=== PATIENT | male | born 1935 | race African-American/Black ===

== ENCOUNTER 2016-11-03 17:19 | Inpatient (IN) | payer MEDICARE, OTHER ==
[~2016-11-03] VITALS: Ht 167.6 cm; Wt 67.1 kg
[2016-11-03] MEDS ORDERED: SODIUM CHLORIDE 0.9% 1000ML BAG (SEPSIS BOLUS) IV ONE (19:15)
[2016-11-03] MEDS ORDERED: LEVOFLOXACIN 750MG PREMIX 150 ML IV ONE (19:15)
[2016-11-03 19:29] LABS: BASOPHILS % 0.8 % (0.0-2.0); EOSINOPHILS % 1.3 % (0.0-5.0); HEMATOCRIT. 35.8 % (42.0-52.0); HEMOGLOBIN. 12.1 g/dL (14.0-18.0); LYMPHOCYTES % 27.4 % (20.0-50.0); MEAN CORPUSCULAR HEMOGLOBIN 30.4 pg (28.0-32.0); MEAN CORPUSCULAR HGB CONC 33.6 g/dL (31.0-37.0); MEAN CORPUSCULAR VOLUME 90.3 fL (80.0-94.0); MONOCYTES % 8.5 % (2.0-8.0); PLATELET 210 x1000/uL (130-400); RED BLOOD CELL COUNT 3.97 mill/uL (4.7-6.1); RED CELL DISTRIBUTION WIDTH 15.5 % (11.6-14.6); WHITE BLOOD COUNT 5.3 x1000/uL (4.5-11.0)
[2016-11-03 19:35] LABS: INR 1.2; PROTHROMBIN TIME 12.5 sec
[2016-11-03 19:36] LABS: CHLORIDE 105 mEq/L (98-107); INDEX HEMOLYSI 1 (1-3); INDEX ICTERIC 1 (1-4); INDEX LIPEMIC 1 (1-3)
[2016-11-03 19:37] LABS: ALBUMIN 2.7 g/dL (3.4-5.0); ANION GAP 14; CALCIUM 9.1 mg/dL (8.5-10.1); CARBON DIOXIDE 26 mEq/L (21-32); UREA NITROGEN BLOOD 18 mg/dL (7-21)
[2016-11-03 19:44] LABS: ALANINE AMINOTRANSFERASE 6 IU/L (13-61); eGFR 39 mL/min (>60)
[2016-11-03 19:45] LABS: NT PRO B-TYPE NATRIURETIC PEP 495 pg/mL (5-125); TROPONIN I < 0.02 ng/mL (0.00-0.04)
[2016-11-03 21:10] LABS: GLUCOSE URINE NEGATIVE (NEGATIVE); KETONES URINE 1+ (NEGATIVE); LEUKOCYTE ESTERASE URINE 2+ (NEGATIVE); NITRITE URINE POSITIVE (NEGATIVE); OCCULT BLOOD URINE 3+ (NEGATIVE); PH URINE 5.5 (4.5-8.0); PROTEIN URINE 2+ (NEGATIVE); SPECIFIC GRAVITY URINE 1.019 (1.005-1.030)
[2016-11-03 21:13] LABS: CLARITY URINE CLOUDY (CLEAR); COLOR URINE RED (YELLOW)
[2016-11-03 21:40] LABS: BACTERIA URINE 4+; RBC URINE TNTC /hpf (0-2); SQUAMOUS EPITHELIAL CELL URINE FEW /lpf (RARE/1+)
[2016-11-03] MEDS ORDERED: IPRATROPIUM/ALBUTEROL 0.5-3(2.5)MG/3ML NEB INH PRN (21:45)
[2016-11-03] MEDS ORDERED: MAGNESIUM/ALUMINUM HYDROXIDE/SIMETHICONE 30ML UDC PO PRN (21:45)
[2016-11-03] MEDS ORDERED: DOCUSATE SODIUM 100MG CAPSULE PO PRN (21:45)
[2016-11-03] MEDS ORDERED: GUAIFENESIN 200MG/10ML SUGAR FREE UDC PO PRN (21:45)
[2016-11-03] MEDS ORDERED: NITROGLYCERIN 0.4MG TABLET SL SL PRN (21:45)
[2016-11-03] MEDS ORDERED: DIPHENHYDRAMINE 50MG/ML VIAL IV PRN (21:45)
[2016-11-03] MEDS ORDERED: MORPHINE SULFATE 2 MG/ML CPJ (NOT FOR IM USE) IV PRN (21:45)
[2016-11-03] MEDS ORDERED: NA PHOS,M-B/NA PHOS,DI-BA ENEMA 118ML PR PRN (21:45)
[2016-11-03] MEDS ORDERED: ZOLPIDEM TARTRATE 5MG TABLET PO PRN (21:45)
[2016-11-03] MEDS ORDERED: CLONIDINE 0.1MG TABLET PO PRN (21:45)
[2016-11-03] MEDS ORDERED: ONDANSETRON HCL 4MG/2ML VIAL IV PRN (21:45)
[2016-11-03] MEDS ORDERED: TRAMADOL 50MG TABLET PO PRN (21:45)
[2016-11-03 22:44] LABS: CREATINE KINASE 58 IU/L (39-308); CREATINE KINASE MB FRACTION < 0.5 ng/mL (0.5-3.6); INDEX HEMOLYSI 1 (1-3); TROPONIN I < 0.02 ng/mL (0.00-0.04)
[2016-11-03] MEDS ORDERED: POTASSIUM CHLORIDE 20MEQ TABLET SR PO NR (22:45)
[2016-11-04 04:00] VITALS: BP_SYST 137; BP_DIAS 80; BP_DIAS 81
[2016-11-04] MEDS ORDERED: ACET1TAB14 PO (04:48)
[2016-11-04 08:00] VITALS: BP 136/102
[2016-11-04] MEDS: ZINC SULFATE 220 MG ( 50 ) CAPSULE PO SCH (08:31)
[2016-11-04] MEDS: ENOXAPARIN 30MG/0.3ML SYR SUBCUT SCH (08:32)
[2016-11-04] MEDS ORDERED: CEFTRIAXONE 1 G PREMIX 50 ML IV SCH (09:00)
[2016-11-04] MEDS: PANTOPRAZOLE SODIUM 40 MG/VIAL IV SCH (09:11)
[2016-11-04 09:31] LABS: CREATINE KINASE 51 IU/L (39-308); INDEX HEMOLYSI 1 (1-3); TROPONIN I < 0.02 ng/mL (0.00-0.04)
[2016-11-04] MEDS: ACETAMINOPHEN 325MG TABLET PO PRN ×2 (10:58→11:03)
[2016-11-04 12:00] VITALS: BP 138/79
[2016-11-04 16:00] VITALS: BP 133/81
[2016-11-04] MEDS: MEGESTROL ACETATE 400 MG/10 ML UDC PO SCH ×2 (16:39→16:51)
[2016-11-04] MEDS: LEVOFLOXACIN 250MG TABLET PO SCH (18:10)
[2016-11-04] MEDS: ACETAMINOPHEN WITH CODEINE 300/60MG TABLET PO PRN (18:11)
[2016-11-04] MEDS ORDERED: LEVOFLOXACIN 250MG PREMIX 50 ML IV SCH (19:00)
[2016-11-04 20:10] VITALS: BP 116/76
[2016-11-05 00:10] VITALS: BP 101/71
[2016-11-05] MEDS: LORAZEPAM 2MG/ML CPJ IV PRN (03:42)
[2016-11-05 04:00] VITALS: BP 121/79
[2016-11-05 08:00] VITALS: BP 128/73
[2016-11-05] MEDS: MEGESTROL ACETATE 400 MG/10 ML UDC PO SCH ×2 (09:00→17:54)
[2016-11-05] MEDS: PANTOPRAZOLE SODIUM 40 MG/VIAL IV SCH (09:20)
[2016-11-05] MEDS: ZINC SULFATE 220 MG ( 50 ) CAPSULE PO SCH (09:22)
[2016-11-05] MEDS: ENOXAPARIN 30MG/0.3ML SYR SUBCUT SCH (09:25)
[2016-11-05] MEDS: CEFTRIAXONE 1 G PREMIX 50 ML IV SCH (10:19)
[2016-11-05 12:00] VITALS: BP 103/67
[2016-11-05 16:00] VITALS: BP 110/74
[2016-11-05] MEDS: LEVOFLOXACIN 250MG TABLET PO SCH (17:54)
[2016-11-05] MEDS: ACETAMINOPHEN WITH CODEINE 300/60MG TABLET PO PRN (17:55)
[2016-11-05 20:00] VITALS: BP 117/78
[2016-11-06] VITALS: BP 114/76
[2016-11-06 04:00] VITALS: BP 118/87
[2016-11-06 08:00] VITALS: BP 105/69
[2016-11-06] MEDS: ZINC SULFATE 220 MG ( 50 ) CAPSULE PO SCH (08:26)
[2016-11-06] MEDS: MEGESTROL ACETATE 400 MG/10 ML UDC PO SCH ×2 (08:27→16:34)
[2016-11-06] MEDS: ENOXAPARIN 30MG/0.3ML SYR SUBCUT SCH (08:27)
[2016-11-06] MEDS: PANTOPRAZOLE SODIUM 40 MG/VIAL IV SCH (08:27)
[2016-11-06] MEDS: CEFTRIAXONE 1 G PREMIX 50 ML IV SCH (09:06)
[2016-11-06 12:00] VITALS: BP 124/89
[2016-11-06 16:00] VITALS: BP 120/76
[2016-11-06] MEDS: LEVOFLOXACIN 250MG TABLET PO SCH (16:34)
[2016-11-06 20:00] VITALS: BP 124/84
[2016-11-07] VITALS: BP 118/78
[2016-11-07 04:00] VITALS: BP 127/85
[2016-11-07 06:41] LABS: HEMATOCRIT 36.8 % (42.0-52.0); HEMOGLOBIN 12.3 g/dL (14.0-18.0); MEAN CORPUSCULAR HEMOGLOBIN 30.7 pg (28.0-32.0); MEAN CORPUSCULAR HGB CONC 33.6 g/dL (31.0-37.0); MEAN CORPUSCULAR VOLUME 91.4 fL (80.0-94.0); PLATELET 187 x1000/uL (130-400); RED BLOOD CELL COUNT 4.02 mill/uL (4.7-6.1); WHITE BLOOD COUNT 7.9 x1000/uL (4.5-11.0)
[2016-11-07 08:00] VITALS: BP 124/85
[2016-11-07] MEDS: ZINC SULFATE 220 MG ( 50 ) CAPSULE PO SCH (08:32)
[2016-11-07] MEDS: MEGESTROL ACETATE 400 MG/10 ML UDC PO SCH ×2 (08:32→17:10)
[2016-11-07] MEDS: ENOXAPARIN 30MG/0.3ML SYR SUBCUT SCH (08:32)
[2016-11-07] MEDS: FAMOTIDINE 20MG TABLET PO SCH (08:32)
[2016-11-07] MEDS: CEFTRIAXONE 1 G PREMIX 50 ML IV SCH (09:28)
[2016-11-07 12:00] VITALS: BP 128/79
[2016-11-07 16:00] VITALS: BP 133/82
[2016-11-07] MEDS: LEVOFLOXACIN 250MG TABLET PO SCH (17:10)
[2016-11-07 20:00] VITALS: BP 134/82
[2016-11-08] VITALS: BP 123/81
[2016-11-08] MEDS: LORAZEPAM 2MG/ML CPJ IV PRN (00:29)
[2016-11-08 04:00] VITALS: BP 100/76
[2016-11-08 08:00] VITALS: BP 141/86
[2016-11-08] MEDS: MEGESTROL ACETATE 400 MG/10 ML UDC PO SCH ×2 (09:26→18:03)
[2016-11-08] MEDS: ZINC SULFATE 220 MG ( 50 ) CAPSULE PO SCH (09:26)
[2016-11-08] MEDS: FAMOTIDINE 20MG TABLET PO SCH (09:26)
[2016-11-08] MEDS: ENOXAPARIN 30MG/0.3ML SYR SUBCUT SCH (09:27)
[2016-11-08] MEDS: CEFTRIAXONE 1 G PREMIX 50 ML IV SCH (10:00)
[2016-11-08] MEDS ORDERED: POTASSIUM CHLORIDE 20MEQ TABLET SR PO NR (11:15)
[2016-11-08] MEDS ORDERED: HALOPERIDOL LACTATE 5MG/ML VIAL IM PRN (11:30)
[2016-11-08 12:00] VITALS: BP 133/91
[2016-11-08 16:00] VITALS: BP 124/91
[2016-11-08 16:43] VITALS: BP 124/91
[2016-11-08] MEDS: LEVOFLOXACIN 250MG TABLET PO SCH (18:03)
== END 2016-11-08 18:50 | DRG 871 ==
LOC: ER 19:46 → SUPCPDRO 21:30 → 7WST 11-04 00:13
PROVIDERS: ADMIT Internal Medicine; ATTEND Internal Medicine
DX: A41.9 Sepsis, unspecified organism (principal); G93.40 Encephalopathy, unspecified; N17.0 Acute kidney failure with tubular necrosis; E43 Unspecified severe protein-calorie malnutrition; N39.0 Urinary tract infection, site not specified; C78.00 Secondary malignant neoplasm of unspecified lung; E86.0 Dehydration; E87.6 Hypokalemia; F03.90 Unspecified dementia, unspecified severity, without behavioral disturbance, psychotic disturbance, mood disturbance, and anxiety; C61 Malignant neoplasm of prostate; E78.00 Pure hypercholesterolemia, unspecified; I10 Essential (primary) hypertension; R62.7 Adult failure to thrive; Z68.23 Body mass index [BMI] 23.0-23.9, adult; Z85.46 Personal history of malignant neoplasm of prostate; Z95.0 Presence of cardiac pacemaker
CPT/HCPCS: 36415; 71010; 80053; 80061; 81001; 82550; 82553; 82962; 83036; 83605; 83880; 84484; 85025; 85027; 85610; 85730; 86850; 86900; 87040; 87086; 93005; 93970; 96365; 96366; 99285; C9113; J0696; J1630; J1650; J1956; J2060; J7030; J7040; J7050